=== PATIENT | male | born 1965 | race Caucasian/White ===

== ENCOUNTER 2021-07-21 18:19 | Inpatient (IN) | payer MEDICAID ==
[~2021-07-21] VITALS: Ht 177.8 cm; Wt 72.6 kg
[2021-07-21] MEDS ORDERED: DARU1TAB3 PO (18:34)
--- NOTE | 2021-07-21 18:48 | NUR ---
PT IS IN ROOM #1B. DR GOMEZ EVALUATED THE PT.
[2021-07-21] MEDS ORDERED: LORAZEPAM 0.5 MG TABLET PO ONE (19:00)
[2021-07-21] MEDS ORDERED: CEFAZOLIN 1 G in IV DEXTROSE 5% 50 ML IV ONE (19:00)
[2021-07-21] MEDS ORDERED: OXYCODONE/APAP 5-325 MG TABLET PO ONE (19:00)
--- NOTE | 2021-07-21 19:00 | NUR ---
received report from day shift RN.
[2021-07-21] MEDS ORDERED: LORAZEPAM 0.5 MG TABLET ONE (19:21)
[2021-07-21] MEDS ORDERED: OXYCODONE/APAP 5-325 MG TABLET ONE (19:21)
[2021-07-21] MEDS ORDERED: VANCOMYCIN IV 1,000 MG in IV DEXTROSE 5% 250 ML IV ONE (19:45)
[2021-07-21] MEDS ORDERED: PIPERACILLIN SODIUM/TAZOBACTAM 4.5 G in IV DEXTROSE 5% 50 ML IV SCH ×2 (19:45→22:00)
--- NOTE | 2021-07-21 19:50 | NUR ---
Requested powerhouse operator for PICC line.
[2021-07-21] MEDS ORDERED: IV NS 1000 ML 1,000 ML IV ONE (20:00)
[2021-07-21 20:09] LABS: *BILIRUBIN,URIN NEGATIVE (NEGATIVE); *BLOOD, URINE NEGATIVE (NEGATIVE); *COLOR,URINE YELLOW (YELLOW); *KETONES,URINE NEGATIVE (NEGATIVE); *UROBILINOGEN,URINE 0.2 E.U./dl (NORMAL); LEUKOCYTE ESTERASE ,URINE TRACE (NEGATIVE); NITRITE, URINE NEGATIVE (NEGATIVE); PH,URINE 6.5 (5.0-8.0); UGLUCOSE NEGATIVE (NEGATIVE)
[2021-07-21 20:10] LABS: HEMATOCRIT 38.7 % (36.7-47.1); MEAN CORPUSCULAR HEMOGLOBIN 29.5 uug (23.8-33.4); MEAN CORPUSCULAR VOLUME 86.1 fL (73.0-96.2); PLATELET COUNT (AUTO) 213 K/uL (152-348)
[2021-07-21 20:15] LABS: *CLARITY,URINE HAZY (CLEAR); BACTERIA,URINE FEW /HPF (NONE SEEN); RBC,URINE 0-3 /HPF (0-3); SQUAMOUS EPITHELIAL CELL,UR FEW /HPF (NONE SEEN); WBC,URINE 20-50 /HPF (0-3)
[2021-07-21 20:20] LABS: BILIRUBIN,DIRECT 0.2 mg/dL (0.0-0.2); BILIRUBIN,TOTAL 0.8 mg/dL (0.2-1.0); CREATININE 1.2 mg/dL (0.6-1.3); POTASSIUM 3.9 mmol/L (3.5-5.1); TOTAL PROTEIN, SERUM 7.3 g/dL (6.4-8.2)
[2021-07-21] MEDS: CHOLECALCIFEROL 1,000 UNIT TABLET PO SCH (20:21)
[2021-07-21] MEDS ORDERED: CHOLECALCIFEROL 1,000 UNIT TABLET ONE (20:28)
--- NOTE | 2021-07-21 21:15 | NUR ---
Called [facility] for panel call.
[2021-07-21] MEDS ORDERED: IV D5/ 0.9% NACL 1,000 ML IV PRN (21:30)
[2021-07-21] MEDS ORDERED: MAGNESIUM HYDROXIDE 30 ML LIQUID UDC PO PRN (21:30)
[2021-07-21] MEDS ORDERED: HYDROCODONE/APAP 5-325MG TABLET PO PRN (21:30)
[2021-07-21] MEDS ORDERED: ONDANSETRON 4 MG/2 ML VIAL IV PRN (21:30)
[2021-07-21] MEDS ORDERED: REMEDY ESSENTIAL ZINC PASTE 113 GM TP PRN (21:30)
--- NOTE | 2021-07-21 22:40 | NUR ---
Ultrasound at bedside
[2021-07-22] MEDS ORDERED: VANCOMYCIN IV 200 ML ONE (00:34)
--- NOTE | 2021-07-22 01:03 | NUR ---
started zosyn IVPG
--- NOTE | 2021-07-22 01:03 | NUR ---
Darren to give zosyn 4.5g IVPG as ordered by Dr Taylor.
--- NOTE | 2021-07-22 01:46 | NUR ---
Report given to [place] JOSHIsenior investigator.
[2021-07-22 02:30] VITALS: BP 115/62
[2021-07-22] MEDS ORDERED: MEROPENEM 1 G in IV NORMAL SALINE 100 ML IV SCH ×2 (02:30→10:00)
--- NOTE | 2021-07-22 02:30 | NUR ---
Admitted patient to Med-surg unit from ER via [facility] with DX of cellulitis left lower leg.Patient awake alert x4 ,disheveled.No s/s of distress noted.On RA.Denies pain at this time.Midline on right upper arm patent and intact with vancomycin infusing at this time. No a/ noted. Call light with in reach .Will continue to monitor.
--- NOTE | 2021-07-22 02:38 | NUR ---
pt taken to 3rd floor via [facility].
[2021-07-22] MEDS: ACETAMINOPHEN 325 MG TABLET PO PRN ×2 (03:29→20:48)
[2021-07-22] MEDS ORDERED: MEROPENEM 1GM/NS 100ML IVPB **ER PYXIS ONLY IV ONE (04:05)
[2021-07-22 06:10] LABS: HEMATOCRIT 36.2 % (36.7-47.1); MEAN CORPUSCULAR HEMOGLOBIN 29.6 uug (23.8-33.4); MEAN CORPUSCULAR VOLUME 86.2 fL (73.0-96.2); PLATELET COUNT (AUTO) 178 K/uL (152-348)
[2021-07-22 06:22] LABS: CREATININE 1.3 mg/dL (0.6-1.3); PHOSPHOROUS 2.7 mg/dL (2.5-4.9); POTASSIUM 3.8 mmol/L (3.5-5.1); TOTAL PROTEIN, SERUM 6.6 g/dL (6.4-8.2)
[2021-07-22 06:52] LABS: THYROID STIMULATING HORMONE 0.438 mIU/mL (0.358-3.740)
[2021-07-22] MEDS: PANTOPRAZOLE SODIUM 40 MG VIAL IV SCH (09:01)
[2021-07-22] MEDS: CHOLECALCIFEROL 1,000 UNIT TABLET PO SCH (09:01)
--- NOTE | 2021-07-22 09:11 | NUR ---
Pt is in bed, does not ant to be bothered. Administered medications. Pt seems altered, says "they are out to get us, they're going to bruise me" Pt wanted to continue to sleep. No signs of acute distress. Comfort measures provided. Call light within reach.
--- NOTE | 2021-07-22 10:20 | NUR ---
Psych consult came for evaluation but pt was angry and not cooperative. Pt was yelling out and wanted to be left alone. Pt asking for home medication MD Padmaja notifed.
[2021-07-22] MEDS: MEROPENEM 1 G in IV NORMAL SALINE 100 ML IV SCH ×2 (11:36→20:02)
--- NOTE | 2021-07-22 11:37 | NUR ---
Clinical Social Work Note SW consult was requested for substance use. SHARON met with 56 year old female who is alert and oriented x3. Patient presents with a hostile mood and congruent affect. When SW walked in patient stated, "Do not overwhelm me." Patient kept his eye closed and spoke very little. SW inquired about patient's substance use. 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 SW asked patient about his willingness to receive treatment and patient stated he is thinking of attending rehab after the hospital. SW offered patient assistance with looking at rehabilitation centers, but patient refused. Patient was provided with a brief substance abuse intervention and referred to the following substance abuse programs: [facility] ([phone]); [facility] [address] [place] [address] ([phone]); [address] [place] [address] ([phone]); [facility] ([phone]); [facility] ([phone]); [facility] ([phone]); [facility] ([phone]).
[2021-07-22 12:00] VITALS: BP 102/54
--- NOTE | 2021-07-22 12:44 | NUR ---
wound culture sent to lab.
[2021-07-22] MEDS: VANCOMYCIN IV 1,250 MG in IV DEXTROSE 5% 250 ML IV SCH (14:46)
[2021-07-22] MEDS: MORPHINE SULFATE 2 MG/1 ML DISP.SYRIN IV PRN ×2 (14:56→18:42)
[2021-07-22 16:00] VITALS: BP 105/61
[2021-07-22 20:27] VITALS: BP 99/48
--- NOTE | 2021-07-22 21:52 | NUR ---
Received pt asleep on bed with no respiratory distress noted. He is alert and oriented x3-4, able to make needs known. Noted with elevated temp 100.2, denies pain and discomfort. Tylenol PRN given, temp went down to 98.8. Midline on [place] remains patent and intact with onging D5 1/2 NS running at 50 ml/hr. No s/sx if infiltration on IV site. Urine sample collected and sent to lab. All needs attended. Call light placed within reach. Will continue to monitor.
[2021-07-23 03:07] LABS: *BASOS 0 % (Not Estab.); *EOS 1 % (Not Estab.); *EOS ABSOLUTE 0.1 x10E3/uL (0.0-0.4); *HCT 36.9 % (37.5-51.0); *HGB 12.6 g/dL (13.0-17.7); *IMMATURE GRANULOCYTES 1 % (Not Estab.); *LYMPHOCYTES 10 % (Not Estab.); *LYMPHOCYTES ABSOLUTE 0.7 x10E3/uL (0.7-3.1); *MCH 29.3 pg (26.6-33.0); *MCHC 34.1 g/dL (31.5-35.7); *MCV 86 fL (79-97); *MONOCYTES 10 % (Not Estab.); *MONOCYTES ABSOLUTE 0.7 x10E3/uL (0.1-0.9); *NEUTROPHILS 78 % (Not Estab.); *NEUTROPHILS ABSOLUTE 5.3 x10E3/uL (1.4-7.0); *PLT 188 x10E3/uL (150-450); *RDW 12.7 % (11.6-15.4); *WBC 6.7 x10E3/uL (3.4-10.8)
[2021-07-23 04:00] VITALS: BP 136/71
[2021-07-23] MEDS: MEROPENEM 1 G in IV NORMAL SALINE 100 ML IV SCH (05:35)
--- NOTE | 2021-07-23 06:25 | NUR ---
No acute changes throughout the night. Pt refused blood draw. Will endorse to next shift.
[2021-07-23 07:50] VITALS: BP 110/66
[2021-07-23] MEDS ORDERED: [UNRECOGNIZED DRUG - OTHER] PO SCH (09:00)
[2021-07-23 09:07] LABS: *HELPER T-LYMPH MARKR(CD4)ABSO 82 /uL (359-1519); *HELPER T-LYNPH MARKER CD4)% 11.7 % (30.8-58.5)
[2021-07-23] MEDS: VANCOMYCIN IV 1,250 MG in IV DEXTROSE 5% 250 ML IV SCH (09:33)
[2021-07-23] MEDS: PANTOPRAZOLE SODIUM 40 MG VIAL IV SCH (09:33)
[2021-07-23] MEDS: MORPHINE SULFATE 2 MG/1 ML DISP.SYRIN IV PRN (09:33)
[2021-07-23] MEDS: CHOLECALCIFEROL 1,000 UNIT TABLET PO SCH (09:34)
--- NOTE | 2021-07-23 10:12 | NUR ---
Clinical Social Work Note SHARON and Gmat Instructor Julianna met with patient to discuss his HIV medication request. SHARON informed patient that in order to connect him with the [facility] for medication we needed a contact number for him. Patient stated that his phone could not make calls. Patient began yelling and aggressive stating that he was promised his HIV medication at the hospital. Julianna provided psychoeducation regarding HIV medication and how hospitals can not prescribe them. Patient continued to yell and scream thus SHARON and Julianna walked out of room. Plan: SHARON will return once patient has calmed down.
[2021-07-23 10:24] VITALS: BP 97/52
--- NOTE | 2021-07-23 10:50 | NUR ---
Jing Gil was called due to pt aggravation and yelling out at SW during conversation. Code Jeffery was cleared. Pt was left alone to calm down and is quiet at this time. Comfort measures provided, call light within reach. Will continue to monitor pt.
--- NOTE | 2021-07-23 11:26 | NUR ---
Clinical Social Work Note SHARON and Cryptologic Linguist Julianna, met with patient to provide him with information on [facility] and informed patient of instructions to call them. Patient began to yell and interrupt SHARON and Julianna when we tried to provide information. SHARON and Julianna had to step out of room due to patient yelling.
--- NOTE | 2021-07-23 13:11 | NUR ---
pt is noncompliant with care. MD KARLA and two security escorts in room when trying to discuss plan of care. Pt would not stop yelling and threatening staff. Pt decided to leave AMA. He would not cooperate with planning a formal discharge plan. Pt was escorted by FIBER [employer]IECE SHAPER and two security guards and KARLA via wheelchair with any personal belongings at hand. IV removed and ID band removed.
[2021-07-23] MEDS ORDERED: MORPHINE SULFATE 2 MG/1 ML DISP.SYRIN IV PRN (13:30)
[2021-07-23] MEDS ORDERED: CLINDAMYCIN PHOSPHATE IV 900 MG in IV DEXTROSE 5% 100 ML IV SCH (14:00)
--- NOTE | 2021-07-23 14:01 | NUR ---
Clinical Social Work Note Case was discussed with Criselda Ng NP and Julianna Stanton RN,MSN Director of acute medr. floor. Patient was threatening staff and refusing labs. and all treatment. Patient was alert and oriented x3 so there did not appear to be any issues with his understanding what he was doing. Patient was also throwing feces and bodily fluids at nursing staff. He was refusing all care offered to him and ackowledged that he had not taken his HIV medication for 3 years. Patient was given referrals for outpatient treatment at [facility] , [address] [place] [address],[address], [place] [phone]. Patient signed out against medical advice. He was very loud after he left the hospital and was heard to say " I will prudence you guys" and told bystanders " they don't want to treat me". Patient was belligerent and threatening and then walked away from the confines of the hospital.
== END 2021-07-23 13:15 | disposition left against medical advice (07) | DRG 894 ==
LOC: ER 18:28 → MEDSURG3 23:30
PROVIDERS: ADMIT Registered Nurse; ATTEND Registered Nurse
PROC: B546ZZA Ultrasonography of Right Subclavian Vein, Guidance (ICD-10-PCS; principal; 2021-07-21)
PROC: 05H533Z Insertion of Infusion Device into Right Subclavian Vein, Percutaneous Approach (ICD-10-PCS; principal; 2021-07-21)
DX: L03.116 Cellulitis of left lower limb (principal); B20 Human immunodeficiency virus [HIV] disease; N17.0 Acute kidney failure with tubular necrosis; L02.416 Cutaneous abscess of left lower limb; E44.1 Mild protein-calorie malnutrition; E87.1 Hypo-osmolality and hyponatremia; E88.09 Other disorders of plasma-protein metabolism, not elsewhere classified; F15.10 Other stimulant abuse, uncomplicated; N39.0 Urinary tract infection, site not specified; Z91.14 Patient's other noncompliance with medication regimen; Z59.00 Homelessness unspecified; Z87.891 Personal history of nicotine dependence; Z91.19 Patient's noncompliance with other medical treatment and regimen; Z68.23 Body mass index [BMI] 23.0-23.9, adult; Z20.822 Contact with and (suspected) exposure to COVID-19; F23 Brief psychotic disorder
CPT/HCPCS: 36415; 73590; 82533; 83735; 83935; 84100; 84300; 84443; 85025; 85651; 86361; 87040; 87070; 87077; 87086; 87536; 93005; 93307; A4663; C9113; G0378; J0690; J2185; J2270; J2543; J3370; J3490; J7030; J7042; J7060